=== PATIENT | male | born 1980 ===

== ENCOUNTER 2017-12-05 21:49 | Emergency (ER) | payer BC ==
[2017-12-05 21:57] VITALS: BP 149/88; PULSE 87; RESP 18; TEMP 98.8; O2SAT 98
--- NOTE | 2017-12-05 22:35 | ED PDOC ---
HPI: Skin/Bite Injury Time Seen by Provider: 12/05/17 22:05 Chief Complaint (Nursing): Abnormal Skin Integrity Chief Complaint (Provider): redness, swelling left lower back History Per: Patient History/Exam Limitations: no limitations Onset/Duration Of Symptoms: Days Current Symptoms Are (Timing): Still Present Additional Complaint(s): 37 yo male with no medical problems presents for evaluation of redness and swelling on the right lower back. Pt states a few weeks ago he felt a small ball and thought it was a pimple or bug bite. PT states the last few days it has been swollen and painful. No fever/chills. Past Medical History Reviewed: Historical Data, Nursing Documentation, Vital Signs Vital Signs: Last Vital Signs Temp 98.8 F 12/05/17 21:55 Pulse 87 12/05/17 21:55 Resp 18 12/05/17 21:55 BP 149/88 12/05/17 21:55 Pulse Ox 98 12/05/17 22:35 - Medical History PMH: No Chronic Diseases - Surgical History Surgical History: No Surg Hx - Family History Family History: States: No Known Family Hx - Living Arrangements Living Arrangements: With Family - Social History Current smoker - smoking cessation education provided: No Alcohol: None - Home Medications Home Medications: Ambulatory Orders Medication Instructions Recorded Clindamycin [Cleocin] 300 mg PO QID #40 cap 12/05/17 - Allergies Allergies/Adverse Reactions: Allergies Allergy/AdvReac Type Severity Reaction Status Date / Time No Known Allergies Allergy Verified 12/05/17 21:57 Review of Systems ROS Statement: Except As Marked, All Systems Reviewed And Found Negative Constitutional: Negative for: Fever, Chills Skin: Positive for: Other Physical Exam - Reviewed Nursing Documentation Reviewed: Yes Vital Signs Reviewed: Yes - Physical Exam Appears: Positive for: Well, Non-toxic, No Acute Distress Head Exam: Positive for: ATRAUMATIC, NORMAL INSPECTION, NORMOCEPHALIC Skin: Positive for: Warm. Negative for: Normal Color (Indurated abscess with localized erythema, left lower back) Eye Exam: Positive for: Normal appearance ENT: Positive for: Normal ENT Inspection Neck: Positive for: Normal Cardiovascular/Chest: Negative for: Bradycardia, Tachycardia Back: Positive for: Normal Inspection Extremity: Positive for: Normal ROM Neurologic/Psych: Positive for: Alert, Oriented - ECG O2 Sat by Pulse Oximetry: 98 Medical Decision Making Medical Decision Making: Discussed warm compresses and return for drainage. Disposition - Clinical Impression Clinical Impression: Abscess - Patient ED Disposition Is Patient to be Admitted: No Counseled Patient/Family Regarding: Diagnosis, Need For Followup, Rx Given - Disposition Referrals: Stewart Dominique MD [Staff Provider] - Disposition: Routine/Home Disposition Time: 22:34 Condition: GOOD Prescriptions: Clindamycin [Cleocin] 300 mg PO QID #40 cap Instructions: Skin Abscess, Abscess Incision and Drainage Forms: [facility] (Malay) Print Language: [id number]
== END 2017-12-05 22:38 | disposition home or self-care (01) ==
LOC: H.ER 21:49
DX: L02.212 Cutaneous abscess of back [any part, except buttock and flank] (principal)